=== PATIENT | male | born 1985 | race Caucasian/White ===

== ENCOUNTER → 2020-04-02 | Outpatient (CLI) | payer BC | LOC: RAD 10:59 | DX: N50.89 Other specified disorders of the male genital organs (principal) ==

== ENCOUNTER 2020-10-08 09:42 | Observation (INO) | payer BC ==
[2020-10-08 10:14] LABS: BASO # 0.04 (0.02-0.10); EOS # 0.03 (0.04-0.40); EOS % 0.4 % (0.0-4.0); HEMATOCRIT 48.2 % (42.0-52.0); HEMOGLOBIN 16.4 g/dL (13.5-18.0); LYMPH# 2.06 (1.50-4.00); MEAN CELL VOLUME 86 fl (78-100); MEAN CORPUSCULAR HEMOGLOBIN 29 pg (27-31); MEAN CORPUSCULAR HGB CONC 34 g/dL (33-37); MEAN PLATELET VOLUME 11.8 fl (7.4-10.4); MONO # 0.52 (0.20-0.80); NEU # 5.81 (1.40-6.50); PLATELET COUNT 214 K/mm3 (130-400); RED BLOOD COUNT 5.62 M/mm3 (4.20-5.60); RED CELL DISTRIBUTION WIDTH 11.6 % (11.5-14.5); WHITE BLOOD COUNT 8.5 K/mm3 (4.8-10.8)
[2020-10-08 10:46] LABS: ALBUMIN 4.1 g/dL (3.5-5.0)
[2020-10-08 10:47] LABS: CALCIUM 9.3 mg/dL (8.3-10.5)
[2020-10-08 10:49] LABS: TOTAL PROTEIN 6.8 g/dL (6.4-8.3)
[2020-10-08 10:50] LABS: TOTAL BILIRUBIN 0.4 mg/dL (0.2-1.2)
[2020-10-08 11:37] LABS: URINE APPEARANCE CLEAR; URINE BILIRUBIN NEGATIVE (NEGATIVE); URINE BLOOD NEGATIVE (NEGATIVE); URINE COLOR YELLOW; URINE KETONE 2+ (NEGATIVE); URINE LEUKOCYTE ESTERASE NEGATIVE (NEGATIVE); URINE NITRATE NEGATIVE (NEGATIVE); URINE PROTEIN(semi-quant) NEGATIVE (NEGATIVE); URINE UROBILINOGEN NORMAL (NORMAL)
[2020-10-08 13:01] VITALS: BP 122/80
[2020-10-08 18:14] VITALS: BP 131/82
[2020-10-08 21:46] VITALS: BP 129/81
[2020-10-09 02:02] VITALS: BP 118/81
[2020-10-09 05:11] VITALS: BP 121/80
[2020-10-09 07:38] LABS: BASO # 0.03 (0.02-0.10); EOS # 0.09 (0.04-0.40); EOS % 1.6 % (0.0-4.0); HEMATOCRIT 45.9 % (42.0-52.0); HEMOGLOBIN 15.3 g/dL (13.5-18.0); LYMPH# 1.67 (1.50-4.00); MEAN CELL VOLUME 87 fl (78-100); MEAN CORPUSCULAR HEMOGLOBIN 29 pg (27-31); MEAN CORPUSCULAR HGB CONC 33 g/dL (33-37); MEAN PLATELET VOLUME 11.5 fl (7.4-10.4); MONO # 0.37 (0.20-0.80); NEU # 3.46 (1.40-6.50); PLATELET COUNT 200 K/mm3 (130-400); RED BLOOD COUNT 5.27 M/mm3 (4.20-5.60); RED CELL DISTRIBUTION WIDTH 11.8 % (11.5-14.5); WHITE BLOOD COUNT 5.6 K/mm3 (4.8-10.8)
[2020-10-09 07:46] LABS: CALCIUM 8.4 mg/dL (8.3-10.5)
[2020-10-09 10:16] VITALS: BP 120/74
[2020-10-09 14:05] VITALS: BP 122/83
[2020-10-09] MEDS ORDERED: METFORMIN HCL500 M2 PO (14:37)
[2020-10-09] MEDS ORDERED: LEVEMIR FLEX100 U/ML SQ (14:37)
[2020-10-09] MEDS ORDERED: TEST STRIPS1 EACH MC (14:44)
[2020-10-09] MEDS ORDERED: 1ST TIER UNILE1 EAC1 MC (14:44)
[2020-10-09] MEDS ORDERED: BLOOD GLUCOSE1 EAC5 MC (14:44)
[2020-10-09] MEDS ORDERED: NANO 2ND GEN P1 EACH MC (15:53)
== END 2020-10-09 15:17 | disposition home or self-care (01) ==
LOC: ED 09:42 → MED/SURG 12:13
PROVIDERS: ADMIT Nurse Practitioner Primary Care
DX: E11.65 Type 2 diabetes mellitus with hyperglycemia (principal); E78.5 Hyperlipidemia, unspecified
CPT/HCPCS: G0378; J1815; J1885; J7030

== ENCOUNTER → 2021-07-22 | Outpatient (CLI) | payer BC ==
[~2021-07-22] MED LIST: 1ST TIER UNILE1 EAC1 MC; BLOOD GLUCOSE1 EAC5 MC; LEVEMIR FLEX100 U/ML SQ; METFORMIN HCL500 M2 PO; NANO 2ND GEN P1 EACH MC; TEST STRIPS1 EACH MC
== END ==
LOC: LAB 08:05
DX: Z20.822 Contact with and (suspected) exposure to COVID-19 (principal)

== ENCOUNTER → 2023-06-01 | Outpatient (REF) | payer BC | LOC: LAB 07:42 | DX: Z20.822 Contact with and (suspected) exposure to COVID-19 (principal) ==

== ENCOUNTER → 2024-01-04 | Outpatient (CLI) | payer BC ==
[2024-01-04 08:03] LABS: BASO # 0.01 K/mm3 (0.02-0.10); EOS # 0.04 K/mm3 (0.04-0.40); EOS % 0.8 % (0.0-4.0); HEMATOCRIT 45.6 % (42.0-52.0); HEMOGLOBIN 15.1 g/dL (13.5-18.0); LYMPH# 1.42 K/mm3 (1.50-4.00); MEAN CELL VOLUME 88 fl (78-100); MEAN CORPUSCULAR HEMOGLOBIN 29 pg (27-31); MEAN CORPUSCULAR HGB CONC 33 g/dL (33-37); MEAN PLATELET VOLUME 10.4 fl (7.4-10.4); MONO # 0.34 K/mm3 (0.20-0.80); NEU # 2.93 K/mm3 (1.40-6.50); PLATELET COUNT 201 K/mm3 (130-400); RED BLOOD COUNT 5.16 M/mm3 (4.20-5.60); RED CELL DISTRIBUTION WIDTH 11.9 % (11.5-14.5); WHITE BLOOD COUNT 4.8 K/mm3 (4.8-10.8)
[2024-01-04 08:12] LABS: ALBUMIN 4.4 g/dL (3.5-5.0)
[2024-01-04 08:13] LABS: CALCIUM 9.5 mg/dL (8.3-10.5)
[2024-01-04 08:14] LABS: TOTAL PROTEIN 6.9 g/dL (6.4-8.3)
[2024-01-04 08:16] LABS: TOTAL BILIRUBIN 0.4 mg/dL (0.2-1.2)
== END ==
LOC: LAB 07:48
PROVIDERS: Family Medicine
DX: E78.5 Hyperlipidemia, unspecified (principal); E11.9 Type 2 diabetes mellitus without complications; E55.9 Vitamin D deficiency, unspecified; I10 Essential (primary) hypertension

== ENCOUNTER → 2024-05-06 | Outpatient (CLI) | payer BC | LOC: LAB 15:10 | DX: E11.9 Type 2 diabetes mellitus without complications (principal) ==